=== PATIENT | female | born 1995 | race Caucasian/White ===

== ENCOUNTER 2017-12-17 00:03 | Emergency (ER) | payer MEDICAID, SELFPAY ==
[2017-12-17 00:03] VITALS: BP 158/95; PULSE 84; RESP 16; TEMP 36.1; O2SAT 96; BMI 40.7
--- NOTE | 2017-12-17 00:22 | ED.VISSUMM ---
- ER Visit Summary Date of Service: 12/17/17 Chief Complaint: Sore throat cough earache and headache History of Present Illness: The patient is a 22 F presenting for evaluation secondary to above. Patient states that over the course of the last week and 1/2-2 weeks she has had upper respiratory type infection. Patient states it has been associated with nonproductive cough nasal congestion headache sinus pressure. Patient states 2 days ago was associated with a fever of 101 that was alleviated by taking NSAIDs. Patient states that however today it is progressed into a significant amount of right ear pain. She does endorse nausea denies any vomiting or diarrhea. Denies any skin rashes headaches neck stiffness. Patient's most recent menstrual cycle was 3 days ago she does not believe she is . Physical Examination: Vital signs within normal limits. Well-nourished obese female no acute distress. Sinus tenderness is noted over the frontal and maxillary sinuses on the right, nasopharynx appears normal. Ear exam shows opacity going up to the midway point of the patient's right tympanic membrane with some mild surrounding erythema. Left TM is normal. No evidence of mastoid tenderness bilaterally. No evidence of otitis externa. Oropharynx is clear. Neck supple. Heart regular rate and rhythm lungs clear. Remainder physical otherwise unremarkable. Test Results: None indicated Emergency Department Course and Treatment: Patient presented with 2 weeks of respiratory illness with sinus pain and evidence of sinusitis and otitis media. Patient will be treated with Afrin and doxycycline first dose given in the emergency department. Disposition: Discharge Impression: 1. Bacterial sinusitis 2. Right-sided otitis media This note was generated with [employer] dictation software. It may contain incorrect words, spelling, and punctuation that were not noted in review of the chart prior to signing ED Disposition - Plan for ED Patient: Disposition: Home or Assisted Living Chief Complaint: Ear Problem Diagnosis: Sinusitis, Otitis media Instructions: ED Otitis Media Acute Adult, ED Sinusitis Abx Tx Prescriptions: Doxycycline Hyclate 1 tab PO BID #20 cap Referrals: Mary Ann Franco [Primary Care Provider] - 1 Week
--- NOTE | 2017-12-17 00:28 | ED.DCSUM_ITS ---
- ER Visit Summary Date of Service: 12/17/17 Chief Complaint: Sore throat cough earache and headache History of Present Illness: The patient is a 22 F presenting for evaluation secondary to above. Patient states that over the course of the last week and 1/ 2-2 weeks she has had upper respiratory type infection. Patient states it has been associated with nonproductive cough nasal congestion headache sinus pressure. Patient states 2 days ago was associated with a fever of 101 that was alleviated by taking NSAIDs. Patient states that however today it is progressed into a significant amount of right ear pain. She does endorse nausea denies any vomiting or diarrhea. Denies any skin rashes headaches neck stiffness. Patient's most recent menstrual cycle was 3 days ago she does not believe she is . Physical Examination: Vital signs within normal limits. Well-nourished obese female no acute distress. Sinus tenderness is noted over the frontal and maxillary sinuses on the right, nasopharynx appears normal. Ear exam shows opacity going up to the midway point of the patient's right tympanic membrane with some mild surrounding erythema. Left TM is normal. No evidence of mastoid tenderness bilaterally. No evidence of otitis externa. Oropharynx is clear. Neck supple. Heart regular rate and rhythm lungs clear. Remainder physical otherwise unremarkable. Test Results: None indicated Emergency Department Course and Treatment: Patient presented with 2 weeks of respiratory illness with sinus pain and evidence of sinusitis and otitis media. Patient will be treated with Afrin and doxycycline first dose given in the emergency department. Disposition: Discharge Impression: 1. Bacterial sinusitis 2. Right-sided otitis media This note was generated with [employer] dictation software. It may contain incorrect words, spelling, and punctuation that were not noted in review of the chart prior to signing ED Disposition - Plan for ED Patient: Disposition: Home or Assisted Living Chief Complaint: Ear Problem Diagnosis: Sinusitis, Otitis media Instructions: ED Otitis Media Acute Adult, ED Sinusitis Abx Tx Prescriptions: Doxycycline Hyclate 1 tab PO BID #20 cap Referrals: Mary Ann Franco [Primary Care Provider] - 1 Week
[2017-12-17] MEDS: Oxymetazoline 0.05% 1 SPRAY SPRAY.BTL 2 SPRAY NASAL (00:44)
[2017-12-17] MEDS: Doxycycline 100 MG CAPSULE PO (00:44)
[2017-12-17 00:47] VITALS: RESP 18
== END 2017-12-17 00:48 | disposition home or self-care (01) ==
PROVIDERS: Emergency Provider Emergency Medicine; Family Provider Family Medicine; PCP Family Medicine
DX: J32.9 Chronic sinusitis, unspecified (principal); H66.91 Otitis media, unspecified, right ear; E11.9 Type 2 diabetes mellitus without complications
CPT/HCPCS: 99283

== ENCOUNTER 2018-03-28 21:53 | Emergency (ER) | payer MEDICAID, SELFPAY ==
[2018-03-28 21:54] VITALS: BP 133/75; PULSE 84; RESP 16; TEMP 36.6; O2SAT 98; BMI 44.9
[2018-03-28 22:56] LABS: Mucous, Urine 0 SEEN /hpf (<or=2+)
[2018-03-28 23:07] LABS: Color, Urine Yellow (Yellow); Glucose, Dipstick Normal (Normal); Ketone-Dipstick 5 mg/dl (Negative); Leukocyte Esterase-Dipstick 500 /ul (Negative); Nitrite-Dipstick Negative (Negative); Occult Blood-Urine 250 /ul (Negative); Protein-Dipstick 30 mg/dl (Negative); Urine Bilirubin Dipstick Negative (Negative); Urine Clarity Sl. Cloudy (Clear); Urine Urobilinogen 1 mg/dl (Normal)
[2018-03-28 23:18] LABS: Red Blood Cells-Urine 0-5 SEEN /hpf (0-5); Squamous Epithelial Cells - UA 0-5 SEEN /hpf (5-10); White Blood Cells 50-100 SEEN /hpf (0-5)
[2018-03-28 23:19] LABS: Bacteria RARE /hpf (None Seen)
--- NOTE | 2018-03-28 23:41 | ED.DCSUM_ITS ---
- ER Visit Summary Date of Service: 03/28/18 Chief Complaint: Dysuria History of Present Illness: The patient is a 22 F presenting with dysuria, urinary frequency ?2 weeks. She denies possibility of . Denies fever or back pain. Denies abdominal pain, nausea, vomiting. Denies other complaints. Physical Examination: Vitals are stable. Patient is afebrile. Alert no acute distress. HEENT exam is unremarkable. Neck is supple. Lungs are clear and equal bilaterally. Heart is regular rate and rhythm. Abdomen is soft mild suprapubic tenderness with no rebound or guarding Back: No CVA tenderness Extremities are unremarkable. Skin is warm and dry. Remainder of exam is unremarkable. Emergency Department Course and Treatment: Urinalysis shows 50-100 white blood cells, 0-5 epithelial cells. She is given Macrobid. She is advised to follow- up with her primary care physician. Advised return to ED if worsening complaints. Disposition: Discharge home Impression: UTI This note was generated with [employer] dictation software. It may contain incorrect words, spelling, and punctuation that were not noted in review of the chart prior to signing ED Disposition - Plan for ED Patient: Chief Complaint: Complaint Referrals: Mary Ann Franco DO [Primary Care Provider] -
--- NOTE | 2018-03-28 23:41 | ED.DEP ---
ED Disposition - Plan for ED Patient: Chief Complaint: Complaint Instructions: ED UTI Cystitis Female Prescriptions: Nitrofurantoin Macrocrystals [Macrobid] 100 mg PO Q12 #14 capsule Referrals: Mary Ann Franco DO [Primary Care Provider] -
[2018-03-28] MEDS: Nitrofurantoin Macrocrystals 100 MG Capsule PO (23:42)
[2018-03-28 23:44] VITALS: PULSE 64; RESP 18
== END 2018-03-28 23:50 | disposition home or self-care (01) ==
PROVIDERS: Emergency Provider Emergency Medicine; Family Provider Family Medicine; PCP Family Medicine
DX: N39.0 Urinary tract infection, site not specified (principal); E11.9 Type 2 diabetes mellitus without complications
CPT/HCPCS: 81001; 99282

== ENCOUNTER 2018-07-06 07:23 | Emergency (ER) | payer MEDICAID, SELFPAY ==
[2018-07-06 07:24] VITALS: BP 132/70; PULSE 86; RESP 17; TEMP 36.4; O2SAT 100; BMI 40.7
[2018-07-06 07:49] LABS: Mucous, Urine 0 SEEN /hpf (<or=2+); White Blood Cells 0 SEEN /hpf (0-5)
[2018-07-06 07:50] LABS: Bedside Glucose 492 mg/dL (70-110)
[2018-07-06 07:52] LABS: Color, Urine Straw (Yellow); Glucose, Dipstick 1000 mg/dl (Normal); Ketone-Dipstick Negative (Negative); Leukocyte Esterase-Dipstick Negative /ul (Negative); Nitrite-Dipstick Negative (Negative); Occult Blood-Urine Negative /ul (Negative); Protein-Dipstick Negative (Negative); Urine Bilirubin Dipstick Negative (Negative); Urine Clarity Sl. Cloudy (Clear); Urine Urobilinogen Normal (Normal)
[2018-07-06] MEDS: 0.9% Normal Saline 1,000 ML 1000 ML IV (08:06)
[2018-07-06 08:13] LABS: Absolute Lymphocyte Count 2.42 X10^3/ul (0.83-4.51); Absolute Neutrophil Count 5.3 X10^3/uL (2.0-7.7); Basophil# 0.01 X10^3/uL; Basophil% 0.1 % (0-1); Eosinophil# 0.04 X10^3/uL; Eosinophils% 0.5 % (0-5); Hematocrit 41.5 % (37-47); Hemoglobin 13.8 g/dl (12.0-15.0); Lymphocyte # 2.42 X10^3/ul (4.0); Lymphocyte % 29.5 % (19-41); Mean Corp Hgb Conc 33.3 g/gl (32-36); Mean Corpuscular Hgb 31.7 pg (27.0-32.0); Mean Corpuscular Volume 95.2 fL (81-99); Mean Platelet Vol. 10.6 fl (6.2-12.0); Monocyte# 0.48 X10^3/uL; Monocyte% 5.8 % (0-10); Neutrophil # 5.25 X10^3/uL (2.7-7.7); POSITIVE COUNT NO; POSITIVE DIFFERENTIAL NO; POSITIVE MORPHOLOGY NO; Platelet Count 293 K/mm3 (150-450); RBC Distribution Width CV 11.8 % (11.6-14.6); Red Blood Count 4.36 M/mm3 (4.2-5.4); White Blood Count 8.2 K/mm3 (4.4-11.0)
[2018-07-06 08:16] LABS: Bacteria RARE /hpf (None Seen); Squamous Epithelial Cells - UA 0-5 SEEN /hpf (5-10)
[2018-07-06 08:17] LABS: Red Blood Cells-Urine 0-5 SEEN /hpf (0-5)
[2018-07-06 08:36] LABS: Anion Gap 9 (5-15); BUN 8 mg/dL (7-18); BUN/Creat Ratio 9.3 RATIO (10-20); Calcium,Total 8.3 mg/dL (8.5-10.1); Chloride 102 mmol/L (98-107); Creatinine, Serum 0.86 mg/dL (0.55-1.02); EST Glomerular Filtration Rate 88 mL/min (>60); Est Glom Filt Rate - Afr Amer 106 mL/min (>60); Glucose 463 mg/dL (74-106); Sodium Level 138 mmol/L (136-145)
--- NOTE | 2018-07-06 08:38 | ED.RN ---
LAB RESULTED GLUCOSE 463, PHYSICIAN AWARE
--- NOTE | 2018-07-06 08:54 | ED.VISSUMM ---
- ER Visit Summary Date of Service: 07/06/18 Chief Complaint: Urinary tract infection History of Present Illness: The patient is a 22 F who has history of type 1 diabetes presents because of discomfort with urination frequency urgency and central low back pain for the past 1 week. She reported a temperature of 102 3 days ago. She denies headache, visual, ocular auditory symptoms. She denies URI symptoms. She denies chest pain. She denies abdominal pain, nausea, vomiting or diarrhea. There is no history of renal ureterolithiasis. She denies skin lesions or rash. She reports difficulty controlling her blood sugar. She states her blood sugar this morning was 81. Physical Examination: Vital signs noted. Blood pressure is elevated 132/70. BMI is 40.7. Head is atraumatic normocephalic. Pupils are equal round reactive. Extraocular muscles are intact. TMs are pearly white with landmarks noted. Nares patent with no drainage. Posterior pharynx without erythema or exudate. Uvula is midline. There is no dysphonia or dysphasia. Trachea is midline. There is no stridor with auscultation of the neck. Heart is regular without murmur, gallop or rub. S1 and S2 are normal. Lungs are clear to auscultation with good movement of air bilaterally. Abdomen is soft nontender equivocal discomfort suprapubic area with deep palpation. Bowel sounds are present normal. There is no appreciable umbilical or inguinal hernia. There is no CVA tenderness. There are no skin lesions or rash noted. Neuro exam is nonfocal. Test Results: B GT was 463. BMP was obtained which was positive for an elevated blood sugar 464 with a normal CO2 and anion gap. UA was remarkable for glucose only Emergency Department Course and Treatment: With history of recurrent urinary tract infection frequency urgency and discomfort a UA was obtained and because of the elevated B GT a BMP was obtained to assess CO2 and anion gap. Treatment Plan: 10 units of insulin was administered subcu and she received Diflucan. Disposition: Discharged home with appropriate home-going instructions and follow-up with her room designer Impression: 1. Hyperglycemia and type I diabetic, poorly controlled 2. Dysuria secondary to monilial infection This note was generated with [employer] software. It may contain incorrect words, spelling, and punctuation that were not noted in review of the chart prior to signing ED Disposition - Plan for ED Patient: Disposition: Home or Assisted Living Chief Complaint: Complaint Instructions: ED Hyperglycemia Diabetic Referrals: Mary Ann Franco DO [Primary Care Provider] - 3-5 Days if not improving
--- NOTE | 2018-07-06 08:58 | ED.DCSUM_ITS ---
- ER Visit Summary Date of Service: 07/06/18 Chief Complaint: Urinary tract infection History of Present Illness: The patient is a 22 F who has history of type 1 diabetes presents because of discomfort with urination frequency urgency and central low back pain for the past 1 week. She reported a temperature of 102 3 days ago. She denies headache, visual, ocular auditory symptoms. She denies URI symptoms. She denies chest pain. She denies abdominal pain, nausea, vomiting or diarrhea. There is no history of renal ureterolithiasis. She denies skin lesions or rash. She reports difficulty controlling her blood sugar. She states her blood sugar this morning was 81. Physical Examination: Vital signs noted. Blood pressure is elevated 132/70. BMI is 40.7. Head is atraumatic normocephalic. Pupils are equal round reactive. Extraocular muscles are intact. TMs are pearly white with landmarks noted. Nares patent with no drainage. Posterior pharynx without erythema or exudate. Uvula is midline. There is no dysphonia or dysphasia. Trachea is midline. There is no stridor with auscultation of the neck. Heart is regular without murmur, gallop or rub. S1 and S2 are normal. Lungs are clear to auscultation with good movement of air bilaterally. Abdomen is soft nontender equivocal discomfort suprapubic area with deep palpation. Bowel sounds are present normal. There is no appreciable umbilical or inguinal hernia. There is no CVA tenderness. There are no skin lesions or rash noted. Neuro exam is nonfocal. Test Results: B GT was 463. BMP was obtained which was positive for an elevated blood sugar 464 with a normal CO2 and anion gap. UA was remarkable for glucose only Emergency Department Course and Treatment: With history of recurrent urinary tract infection frequency urgency and discomfort a UA was obtained and because of the elevated B GT a BMP was obtained to assess CO2 and anion gap. Treatment Plan: 10 units of insulin was administered subcu and she received Diflucan. Disposition: Discharged home with appropriate home-going instructions and follow-up with her animal behaviorist Impression: 1. Hyperglycemia and type I diabetic, poorly controlled 2. Dysuria secondary to monilial infection This note was generated with [employer] software. It may contain incorrect words, spelling, and punctuation that were not noted in review of the chart prior to signing ED Disposition - Plan for ED Patient: Disposition: Home or Assisted Living Chief Complaint: Complaint Instructions: ED Hyperglycemia Diabetic Referrals: Mary Ann Franco DO [Primary Care Provider] - 3-5 Days if not improving
[2018-07-06] MEDS: Insulin Lispro 100 UNIT/ML INSULN.PEN 10 UNIT SC (09:40)
[2018-07-06] MEDS: Fluconazole 100 MG Tablet 200 MG PO (09:40)
[2018-07-06 09:43] VITALS: BP 134/74; PULSE 68; RESP 17; O2SAT 98
== END 2018-07-06 09:44 | disposition home or self-care (01) ==
PROVIDERS: Emergency Provider Emergency Medicine; Family Provider Family Medicine; PCP Family Medicine
DX: E10.65 Type 1 diabetes mellitus with hyperglycemia (principal); B37.9 Candidiasis, unspecified; Z87.440 Personal history of urinary (tract) infections; E66.9 Obesity, unspecified; Z68.41 Body mass index [BMI] 40.0-44.9, adult
CPT/HCPCS: 80048; 81001; 82962; 85025; 96360; 96361; 96372; 99284; J7030

== ENCOUNTER → 2020-12-22 14:55 | Outpatient (CLI) | payer OTHER, SELFPAY ==
[2020-12-22 14:26] VITALS: BMI 47.1
[2020-12-22 16:44] LABS: Absolute Lymphocyte Count 3.14 X10^3/uL (0.83-4.51); Absolute Neutrophil Count 5.4 X10^3/uL (2.0-7.7); Basophil# 0.04 X10^3/uL; Basophil% 0.4 % (0-1); Eosinophil# 0.07 X10^3/uL; Eosinophils% 0.8 % (0-5); Hemoglobin 15.3 g/dL (12.0-15.0); Lymphocyte # 3.14 X10^3/ul (4.0); Lymphocyte % 34.1 % (19-41); Mean Corp Hgb Conc 32.6 g/dL (32-36); Mean Corpuscular Hgb 31.5 pg (27.0-32.0); Mean Corpuscular Volume 96.7 fL (81-99); Monocyte# 0.49 X10^3/uL; Monocyte% 5.3 % (0-10); NRBC Flagged by Analyzer 0 % (0-5); Neutrophil # 5.44 X10^3/uL (2.7-7.7); Neutrophil % 59.2 % (47-70); Platelet Count 383 K/mm3 (150-450); RBC Distribution Width CV 11.8 % (11.6-14.6); RBC Distribution Width SD 41.9 fl (35.1-43.9); Red Blood Count 4.86 M/mm3 (4.2-5.4); White Blood Count 9.2 K/mm3 (4.4-11.0)
[2020-12-22 17:05] LABS: ALB/GLOB Ratio 0.9 RATIO (0.9-2.4); AST(SGOT) 8 U/L (15-37); Alanine Aminotransfer ALT/SGPT 25 U/L (13-56); Albumin, Serum 3.7 g/dL (3.2-5.0); Alkaline Phosphatase 120 U/L (45-117); Anion Gap 4 (5-15); BUN 11 mg/dL (7-18); BUN/Creat Ratio 16.4 RATIO (10-20); Calcium,Total 9.3 mg/dL (8.5-10.1); Chloride 107 mmol/L (98-107); Cholesterol 200 mg/dL (200); Creatinine, Serum 0.67 mg/dL (0.55-1.02); EST Glomerular Filtration Rate 115 mL/min (>60); Est Glom Filt Rate - Afr Amer 139 mL/min (>60); Ferritin 28 ng/mL (8-252); Globulin 4.2 g/dL (2.2-4.2); Glucose 100 mg/dL (74-106); High Density Lipoprotein 51 mg/dL; Potassium 3.6 mmol/L (3.5-5.1); Protein, Total 7.9 g/dL (6.4-8.2); Sodium Level 140 mmol/L (136-145); Thyroid Stim Hormone (TSH) 1.31 uIU/mL (0.358-3.74); Triglycerides 198 mg/dL; Very Low Density Lipoprotein 40 mg/dL (5-40)
[2020-12-22 17:08] LABS: Microalbumin,Random Urine 11.5 mg/L (NO RANGE EST.); Microalbumin:Creatinine Ratio 8.9 mg/g CRE (<30 mg/g CRE)
== END ==
PROVIDERS: Referring Provider Internal Medicine Endocrinology, Diabetes & Metabolism; Visit Provider Internal Medicine Endocrinology, Diabetes & Metabolism
DX: E03.8 Other specified hypothyroidism (principal); E06.3 Autoimmune thyroiditis; E11.9 Type 2 diabetes mellitus without complications; R53.81 Other malaise; R53.83 Other fatigue
CPT/HCPCS: 36415; 80053; 80061; 82043; 82570; 82728; 84439; 84443; 85025

== ENCOUNTER → 2021-09-14 11:26 | Outpatient (CLI) | payer OTHER, SELFPAY ==
[2021-09-14 11:30] LABS: Bacteria 0 SEEN /hpf (None Seen); Mucous, Urine 0 SEEN /hpf (<or=2+); Red Blood Cells-Urine 0 SEEN /hpf (0-5)
[2021-09-14 11:52] LABS: Color, Urine Yellow (Yellow); Glucose, Dipstick 1000 mg/dl (Normal); Ketone-Dipstick 5 mg/dl (Negative); Leukocyte Esterase-Dipstick 25 /ul (Negative); Nitrite-Dipstick Negative (Negative); Occult Blood-Urine Negative /ul (Negative); Protein-Dipstick Negative (Negative); Urine Bilirubin Dipstick Negative (Negative); Urine Clarity Clear (Clear); Urine Urobilinogen Normal (Normal)
[2021-09-14 12:24] LABS: Squamous Epithelial Cells - UA 0-5 SEEN /hpf (5-10); White Blood Cells 0-5 SEEN /hpf (0-5)
== END ==
LOC: LAB 11:27
PROVIDERS: Referring Provider Internal Medicine Endocrinology, Diabetes & Metabolism; Visit Provider Internal Medicine Endocrinology, Diabetes & Metabolism
DX: R30.0 Dysuria (principal)
CPT/HCPCS: 81001; 87086; 87088; 87186

== ENCOUNTER 2021-12-17 17:51 | Emergency (ER) | payer OTHER, SELFPAY ==
[2021-12-17 17:52] VITALS: BP 129/75; PULSE 80; RESP 16; TEMP 36.6; O2SAT 97; BMI 50.5
--- NOTE | 2021-12-17 18:10 | EX.ED.DYSGE1 ---
HPI History of Present Illness Chief Complaint: General Illness Informant: patient Narrative Narrative: 26-year-old female reportedly her boyfriend had a positive PPD test. He had a chest x-ray did not know results yet. She works for [employer]. They wanted her evaluated for possible TB exposure. She is having no symptoms whatsoever. No cough, fever or night sweats. She is a known diabetic. Prior similar symptoms: No Recent Illness/Hospitalization: No PFSH PFS Medical History Obesity Type 1 diabetes mellitus Home Medications norgestimate-ethinyl estradiol 1 tab PO DAILY 05/14/14 [History Last Taken Unknown] cetirizine 10 mg tablet 10 mg PO DAILY 10/31/19 [History Last Taken Unknown] cholecalciferol (vitamin D3) 1,250 mcg (50,000 unit) tablet 50,000 unit PO QWEEK 10/31/19 [History Last Taken Unknown] pen needle, diabetic 32 gauge x 5/32 #50 ea 11/05/19 [Rx Last Taken Unknown] blood sugar diagnostic #150 each 12/22/20 [Rx Last Taken Unknown] insulin syr/ndl U100 half quyen 0.3 mL 31 gauge x 5/16 #100 each 12/22/20 [Rx Last Taken Unknown] levothyroxine 100 mcg tablet 100 mcg PO DAILY #30 tab 12/22/20 [Rx Last Taken Unknown] pen needle, diabetic 32 gauge x 5/32 #100 each 12/22/20 [Rx Last Taken Unknown] Humalog U-100 Insulin 100 unit/mL subcutaneous solution 25 unit SC TID #30 ml NS 12/24/20 [Rx Last Taken Unknown] norethindrone (contraceptive) 0.35 mg tablet 0.35 mg PO tab 05/04/21 [History Last Taken Unknown] insulin glargine U-300 conc 300 unit/mL (1.5 mL) subcutaneous pen 36 unit SUBCUT DAILY #4.5 ml 05/31/21 [Rx Last Taken Unknown] flash glucose sensor #2 each 09/13/21 [Rx Last Taken Unknown] amoxicillin 875 mg-potassium clavulanate 125 mg tablet 1 tab PO BID #6 tab 09/16/21 [Rx Last Taken Unknown] Allergy/AdvReac Type Severity Reaction Status Date / Time insulin glargine Allergy Hives Verified 12/17/21 17:52 [From Lantus] Family History Father Diabetes Hypolipidemia Mother Myocardial infarction Diabetes Renal failure Blind Surgical History H/O oral surgery History of placement of ear tubes Social History Smoking Status: Never smoker alcohol intake: current alcohol intake frequency: a few times a month substance use type: does not use what type of physical activity do you participate in: none ROS ROS ED ROS Narrative Denies. Review of Systems ROS Unobtainable: Denies due to encephalopathy Constitutional Constitutional ED: Denies fever(s) Eyes Eyes: Denies change in vision ENT ENT ED: Denies ear pain Cardiovascular Cardiovascular: Denies chest pain Respiratory/Chest Respiratory/Chest: Denies cough, dyspnea or sputum Gastrointestinal Gastrointestinal: Denies abdominal pain Genitourinary Genitourinary ED: Denies dysuria Musculoskeletal Musculoskeletal: Denies myalgias Integumentary Denies rash Neurologic Neurologic: Denies headache(s) Psychiatric Psychiatric: Denies depression Endocrine Endocrinology: Denies polyuria EXAM Physical Exam Narrative Exam Narrative: 26-year-old female. Vital signs stable afebrile. Normal exam. Lungs are clear equal symmetrical. Const Vital Signs: 12/17/21 17:52 12/17/21 18:21 Temperature 97.8 F Temperature Source Temporal Pulse Rate 80 Respiratory Rate 16 Respiratory Effort Normal Respiratory Pattern Normal Blood Pressure 129/75 H Blood Pressure Mean 93 Pulse Ox 97 Oxygen Delivery Method Room Air Positive well nourished, well developed and obese; Negative for cachectic, contractures or unkempt General Appearance ED: well developed and NAD; Negative for unkempt, cachectic, contractures, cyanotic, diaphoretic or pallor Nutritional Appearance: obese; Negative for cachectic HEENT Reports moist mucous membranes Negative for trauma Eyes PERRL and EOMs intact bilaterally Neck no lymphadenopathy, supple and no JVD General: Negative for tenderness Chest Wall inspection of chest normal and palpation of chest normal Resp normal respiratory effort and clear to auscultation bilaterally Auscultation: Negative for rales, rhonchi or wheezes Cardio regular rate, regular rhythm, S1 normal heart sound, S2 normal heart sound and no murmurs GI normal to inspection, nondistended, normoactive bowel sounds, non-tender, non-distended and no masses Auscultation: normoactive bowel sounds Palpation: soft; Negative for tender, guarding or rebound tenderness present Back/Spine no CVA tenderness General Back: Negative for CVA tenderness Cervical Spine: Negative for cervical spine tenderness Thoracic Spine / Upper Back: Negative for thoracic spinal tenderness Extremity normal to inspection General Extremety ED: Negative for edema or tenderness General Extremity: Negative for edema Neuro oriented x3 Sensorium / Orientation: alert; Negative for orientation impaired, lethargic or stuporous Motor Exam: strength 5/5 throughout Psych mental status grossly normal Appearance: Negative for unkempt Mood & Affect: Negative for depressed or tearful Skin no rashes or lesions noted and no wounds General Skin Exam: Negative for jaundice or pallor MDM MDM MDM Narrative Medical decision making narrative: 26-year-old whose boyfriend may or may not have TB. He had a positive PPD test supposedly and a chest x-ray but they do not know the chest x-ray results as of yet. Her workplace wanted her tested. Her exam is normal. She has no complaints. PPD cannot be done at this time to the emergency department. Patient [facility] be [facility] to get this performed. I discussed that with her. Discharge Plan Triage Chief Complaint: General Illness ED Provider: Mark Taveras Dx/Rx/DC Orders Clinical Impression: Contact with and (suspected) exposure to tuberculosis, History of diabetes mellitus Prescriptions: No Action (DME) pen needle, diabetic [BD Ultra-Fine Cinthia Pen Needle] 32 gauge x 5/32 needle See Rx Instructions .ROUTE .MEDSUPPLY Qty: 50 RF: 4 cholecalciferol (vitamin D3) 1,250 mcg (50,000 unit) tablet 50,000 unit PO QWEEK RF: 0 cetirizine [Zyrtec] 10 mg tablet 10 mg PO DAILY RF: 0 levothyroxine 100 mcg tablet 100 mcg PO DAILY Qty: 30 RF: 12 (DME) pen needle, diabetic [BD Cinthia 2nd Gen Pen Needle] 32 gauge x 5/32 needle See Rx Instructions .ROUTE .MEDSUPPLY Qty: 100 RF: 5 (DME) BD Insulin Syringe (half unit) 0.3 mL 31 gauge x 5/16 syringe See Rx Instructions .ROUTE .MEDSUPPLY Qty: 100 RF: 5 (DME) OneTouch Ultra Blue Test Strip Strip See Rx Instructions .ROUTE .MEDSUPPLY Qty: 150 RF: 5 insulin lispro [Humalog U-100 Insulin] 100 unit/mL solution 25 unit SC TID Qty: 30 RF: 6 norethindrone (contraceptive) 0.35 mg tablet 0.35 mg PO RF: 0 (DME) FreeStyle Zac 2 Sensor Kit See Rx Instructions .ROUTE .MEDSUPPLY Qty: 2 RF: 8 norgestimate-ethinyl estradiol 1 EACH tablet 1 tab PO DAILY RF: 0 Toujeo SoloStar U-300 Insulin 300 unit/mL (1.5 mL) insulin pen 36 unit subcut DAILY Qty: 4.5 RF: 3 amoxicillin-pot clavulanate 875-125 mg tablet 1 tab PO BID Qty: 6 RF: 0 Primary Care Provider: Care Physician,No Primary Referrals: Corporate,Care [GROUP OF PHYSICIANS] - As soon as possible Care Physician,No Primary [Primary Care Provider] - Activity Restrictions/Additional Instructions: Follow-up with either the [facility] department or [facility] here with the hospital to get a PPD test. Disposition Disposition: Home, Self Care
[2021-12-17 19:00] VITALS: RESP 16
== END 2021-12-17 19:09 | disposition home or self-care (01) ==
PROVIDERS: Emergency Provider Emergency Medicine; Visit Provider Emergency Medicine
DX: R53.1 Weakness (principal); E10.9 Type 1 diabetes mellitus without complications; Z79.4 Long term (current) use of insulin; E66.9 Obesity, unspecified
CPT/HCPCS: 99282

== ENCOUNTER → 2022-09-02 | Outpatient (CLI) | payer OTHER, SELFPAY ==
[2022-09-02 12:53] LABS: Vitamin D,25 Hydroxy 16.4 ng/mL
[2022-09-02 12:56] LABS: ALB/GLOB Ratio 0.9 RATIO (0.9-2.4); AST(SGOT) 10 U/L (15-37); Alanine Aminotransfer ALT/SGPT 21 U/L (13-56); Albumin, Serum 3.6 g/dL (3.2-5.0); Alkaline Phosphatase 105 U/L (45-117); Anion Gap 5 (5-15); BUN 14 mg/dL (7-18); BUN/Creat Ratio 18.8 RATIO (10-20); Calcium,Total 8.9 mg/dL (8.5-10.1); Chloride 106 mmol/L (98-107); Cholesterol 177 mg/dL (200); Creatinine, Serum 0.74 mg/dL (0.55-1.02); EST Glomerular Filtration Rate 101 mL/min (>60); Est Glom Filt Rate - Afr Amer 122 mL/min (>60); Globulin 4.1 g/dL (2.2-4.2); Glucose 184 mg/dL (74-106); High Density Lipoprotein 43 mg/dL; Potassium 4.1 mmol/L (3.5-5.1); Protein, Total 7.7 g/dL (6.4-8.2); Sodium Level 138 mmol/L (136-145); T4 Free Direct 1.11 ng/dL (0.76-1.46); Triglycerides 76 mg/dL; Very Low Density Lipoprotein 15 mg/dL (5-40)
[2022-09-02 15:58] LABS: Microalbumin,Random Urine 17.2 mg/L (NO RANGE EST.); Microalbumin:Creatinine Ratio 10.2 mg/g CRE (<30 mg/g CRE)
== END | disposition home or self-care (01) ==
LOC: BIMLAB 11:35
PROVIDERS: Referring Provider Internal Medicine Endocrinology, Diabetes & Metabolism; Visit Provider Internal Medicine Endocrinology, Diabetes & Metabolism
DX: E11.9 Type 2 diabetes mellitus without complications (principal); E03.8 Other specified hypothyroidism; E06.3 Autoimmune thyroiditis; E55.9 Vitamin D deficiency, unspecified
CPT/HCPCS: 36415; 80053; 80061; 82043; 82306; 82570; 84439; 84443

== ENCOUNTER → 2022-12-14 | Outpatient (CLI) | payer OTHER, SELFPAY ==
[2022-12-14 15:54] LABS: Absolute Neutrophil Count 5.2 X10^3/uL (2.0-7.7); Basophil# 0.04 X10^3/uL; Basophil% 0.4 % (0-1); Eosinophils% 1.1 % (0-5); Hematocrit 45.3 % (37-47); Hemoglobin 14.8 g/dL (12.0-15.0); Lymphocyte % 36.8 % (19-41); Mean Corp Hgb Conc 32.7 g/dL (32-36); Mean Corpuscular Hgb 30.7 pg (27.0-32.0); Mean Platelet Vol. 10.5 fl (6.2-12.0); Monocyte# 0.45 X10^3/uL; Monocyte% 4.9 % (0-10); NRBC Flagged by Analyzer 0 % (0-5); Neutrophil # 5.23 X10^3/uL (2.7-7.7); Neutrophil % 56.5 % (47-70); Platelet Count 383 K/mm3 (150-450); RBC Distribution Width CV 12.1 % (11.6-14.6); RBC Distribution Width SD 41.9 fl (35.1-43.9); Red Blood Count 4.82 M/mm3 (4.2-5.4); White Blood Count 9.3 K/mm3 (4.4-11.0)
[2022-12-14 17:16] LABS: HIV - WCH Non-Reactive (Nonreactive); Hepatitis C Antibody Non-Reactive (Nonreactive); Syphilis Antibodies Non-reactive
[2022-12-16 22:07] LABS: Chlamydia By Nucleic Acid AMP Negative (Negative)
[2022-12-17 11:25] LABS: Gonococcus By Nucleic Acid AMP Negative (Negative)
[2022-12-17 14:18] LABS: HSV 2 IgG < 0.91 index (0.00-0.90)
== END | disposition home or self-care (01) ==
PROVIDERS: Referring Provider Nurse Practitioner Women's Health; Visit Provider Nurse Practitioner Women's Health
DX: Z20.2 Contact with and (suspected) exposure to infections with a predominantly sexual mode of transmission (principal); N92.1 Excessive and frequent menstruation with irregular cycle
CPT/HCPCS: 36415; 85025; 85245; 86695; 86696; 86703; 86780; 86803; 87491; 87591

== ENCOUNTER → 2022-12-19 | Outpatient (CLI) | payer OTHER, SELFPAY ==
--- NOTE | 2022-12-19 15:11 | US_ITS ---
STUDY: ULTRASOUND OF THE FEMALE PELVIS - COMPLETE REASON FOR EXAM: Female, 27 years old. Bleeding LMP: December 13, 2022. TECHNIQUE: Transabdominal and Transvaginal TECHNICAL QUALITY: Adequate. COMPARISON: None. FINDINGS: The uterus is anteverted and is in a midline position. The uterus measures 7.2 cm x 3.9 cm x 4.1 cm. Normal uterine cervix. The endometrium measures 2.8 mm in thickness, and is hyperechoic. There is no demonstrated endometrial mass. There is a 1.8 cm x 1.6 cm x 1.1 cm fibroid in the mid superior aspect of the body of the uterus. I.U.D. - The patient does not have an I.U.D. The right ovary is visualized. The right ovary measures 3.5 cm x 2.8 cm x 2.4 cm. Small follicles are seen within the ovary. There is no visualized right adnexal mass or complex lesion. There is normal arterial and normal venous vascularity. The left ovary is visualized. The left ovary measures 3.5 cm x 3.3 cm x 2.2 cm. Small follicles are seen. There is no visualized left adnexal mass or complex lesion. There is normal arterial and normal venous vascularity. There is no fluid in the cul-de-sac. The pre void volume of the bladder was 552.5 ml. US/Pelvic (Non ) IMPRESSION: Small fibroid uterus. Electronically Signed: Jim Elaine MD at 15:48 EDT ,
== END | disposition home or self-care (01) ==
LOC: OPUS 15:10
PROVIDERS: Referring Provider Nurse Practitioner Women's Health; Visit Provider Nurse Practitioner Women's Health
DX: N92.1 Excessive and frequent menstruation with irregular cycle (principal)
CPT/HCPCS: 76830; 76856

== ENCOUNTER → 2023-01-30 | Outpatient (CLI) | payer OTHER, SELFPAY ==
[2023-02-06 16:41] LABS: HPV Reflexed? NOT INDICATED
== END | disposition home or self-care (01) ==
LOC: LABSPEC 14:45
PROVIDERS: Referring Provider Nurse Practitioner Women's Health; Visit Provider Nurse Practitioner Women's Health
DX: Z12.4 Encounter for screening for malignant neoplasm of cervix (principal)
CPT/HCPCS: 88175; G0145

== ENCOUNTER → 2023-02-22 | Outpatient (CLI) | payer OTHER, SELFPAY ==
[2023-02-22 15:44] LABS: Hemoglobin A1c 6.7 % (3.8-5.6)
== END | disposition home or self-care (01) ==
LOC: LAB 12:23
PROVIDERS: PCP Nurse Practitioner Family; Referring Provider Internal Medicine Endocrinology, Diabetes & Metabolism; Visit Provider Internal Medicine Endocrinology, Diabetes & Metabolism
DX: E10.65 Type 1 diabetes mellitus with hyperglycemia (principal)
CPT/HCPCS: 36415; 83036

== ENCOUNTER → 2024-01-05 | Outpatient (CLI) | payer OTHER, SELFPAY ==
[2024-01-05 12:36] LABS: Vitamin D,25 Hydroxy 35.4 ng/mL
[2024-01-05 12:54] LABS: ALB/GLOB Ratio 0.8 RATIO (0.9-2.4); AST(SGOT) 34 U/L (15-37); Alanine Aminotransfer ALT/SGPT 49 U/L (13-56); Albumin, Serum 3.4 g/dL (3.2-5.0); Alkaline Phosphatase 91 U/L (45-117); Anion Gap 5 (5-15); BUN 9 mg/dL (7-18); Chloride 106 mmol/L (98-107); Cholesterol 191 mg/dL (200); Creatinine, Serum 0.69 mg/dL (0.55-1.02); EST Glomerular Filtration Rate 108 mL/min (>60); Est Glom Filt Rate - Afr Amer 131 mL/min (>60); Glucose 160 mg/dL (74-106); High Density Lipoprotein 44 mg/dL; Potassium 4.1 mmol/L (3.5-5.1); Protein, Total 7.4 g/dL (6.4-8.2); Sodium Level 138 mmol/L (136-145); T4 Free Direct 0.94 ng/dL (0.76-1.46); Thyroid Stim Hormone (TSH) 1.18 uIU/mL (0.358-3.74); Triglycerides 142 mg/dL; Very Low Density Lipoprotein 28 mg/dL (5-40)
[2024-01-05 16:20] LABS: Microalbumin,Random Urine 15.3 mg/L (NO RANGE EST.); Microalbumin:Creatinine Ratio 9.3 mg/g CRE (<30 mg/g CRE)
== END | disposition home or self-care (01) ==
LOC: BIMLAB 11:21
PROVIDERS: PCP Nurse Practitioner Family; Referring Provider Internal Medicine Endocrinology, Diabetes & Metabolism; Visit Provider Internal Medicine Endocrinology, Diabetes & Metabolism
DX: E11.9 Type 2 diabetes mellitus without complications (principal); E03.8 Other specified hypothyroidism; E06.3 Autoimmune thyroiditis; E66.9 Obesity, unspecified; E55.9 Vitamin D deficiency, unspecified
CPT/HCPCS: 36415; 80053; 80061; 82043; 82306; 82570; 84439; 84443